=== PATIENT | female | born 1995 | race Caucasian/White ===

== ENCOUNTER 2020-12-27 08:23 | Emergency (ER) | payer BC, OTHER, SELFPAY ==
--- NOTE | ~2020-12-27 | XR_ITS ---
EXAMINATION: XR foot RT min 3V DATE: 12/27/2020 09:34 INDICATION: Right foot pain TECHNIQUE: Dorsoplantar, lateral, and 2 oblique views of the right foot were obtained. COMPARISON: None. FINDINGS: There is no fracture, dislocation, or subluxation. The bones, soft tissues, and joint space s are normal. IMPRESSION: 1. No acute osseous abnormality. Reviewed, dictated and finalized at location A.
[2020-12-27 09:00] VITALS: BP 118/88; PULSE 73; RESP 16; TEMP 36.5; O2SAT 98
--- NOTE | 2020-12-27 09:21 | ED.LOWEXIN ---
HPI - Extremity Injury (Lower) General Chief Complaint: Extremity Injury, Lower Stated Complaint: Foot injury Source: patient and RN notes reviewed Mode of arrival: wheelchair Limitations: no limitations History of Present Illness HPI Narrative: patient was kicked in the right lateral foot yesterday while playing soccer. complaint: foot injury Onset (ago): day(s) (1) Injury: Right: foot Type of Injury: blunt Place: street/outdoors Severity scale (1-10): 8 Relieving factors: rest Exacerbating factors: weight bearing, movement and palpation Context: direct blow Associated symptoms: able to partially bear weight Other symptoms: none Review of Systems Review of Systems: All systems reviewed & are unremarkable except as noted in HPI and below PMFSH Past Medical History Medical History (Updated 12/27/20 @ 09:44 by Giuseppe Nevarez MD) No active medical problems Surgical History Surgical History (Updated 12/27/20 @ 09:23 by Giuseppe Nevarez MD) No pertinent past surgical history Social History Social History (Updated 12/27/20 @ 09:29 by Giuseppe Nevarez MD) Smoking status: Never smoker Alcohol intake: current Alcohol use details: Occasional Substance use: current Substance use type: marijuana Exam Const: General: healthy appearing and no acute distress Nutritional Appearance: well nourished Orientation/consciousness: patient oriented x3 Other: female nurse in room during examination. HENMT: Head: normal to inspection Ears: external ears normal Eyes: Conjunctivae: conjunctivae normal Pupils: Equal, round and reactive pupils present EOM: EOMs intact bilaterally Neck: Neck: normal visual inspection Resp: Effort & Inspection: normal respiratory effort Auscultation: clear to auscultation bilaterally Cardio: Rate: regular rate Rhythm: regular rhythm GI: GI Palp: Yes Soft to palpation and No Tenderness to palpation present (GI) Auscultation: normal bowel sounds Back/Spine/Pelvis: Back: no CVA tenderness Skin: General skin exam: normal color Neuro: General: patient oriented x3, moves all extremities and no focal motor deficits Speech: normal speech Gait exam (Neuro): Normal gait present Extrem: General: normal to inspection and no clubbing, cyanosis or edema Right lower extremity: foot Details: tenderness Location: of the dorsal foot Location: distally, proximally and laterally ( Over 5th metatarsal) and ecchymosis lateral mid Psych: Appearance: grossly normal and well kempt Mental Status: mental status grossly normal Affect: normal affect Attitude: cooperative Thought content: Yes Normal thought content present Discharge Plan Discharge Clinical Impression: Contusion of right foot Qualifiers: Encounter type: initial encounter Qualified Code(s): S90.31XA - Contusion of right foot, initial encounter Patient Disposition: Home, Self-Care Condition: Stable Instructions: Foot Contusion (ED) Additional Instructions: use Tylenol and or Motrin as needed for pain. Ice and elevate. Follow-up with your primary care any worsening symptoms. Follow-up/Referrals: UNKNOWN,DOCTOR [Primary Care Provider] - Stand Alone Forms: Work/School Release IP Time of Disposition: 09:44
== END 2020-12-27 09:51 | disposition home or self-care (01) ==
PROVIDERS: Emergency Provider Emergency Medicine
DX: S90.31XA Contusion of right foot, initial encounter (principal); W50.1XXA Accidental kick by another person, initial encounter
CPT/HCPCS: 73630; 99282; 99283

== ENCOUNTER 2021-05-23 17:53 | Emergency (ER) | payer BC, OTHER, SELFPAY ==
[2021-05-23 18:20] VITALS: BP 132/76; PULSE 86; RESP 16; TEMP 36.7; O2SAT 100
--- NOTE | 2021-05-23 18:50 | PC.NURSE ---
EAN PEREZASSEMBLY WORKER AT [facility] CONTACTED FOR POSSIBLE TRANSFER, DR. CLAUDY ESCAMILLA CONTACTED AND SPOKE WITH ERP
--- NOTE | 2021-05-23 18:51 | ED.PREGNANCY ---
HPI - General Chief complaint: OB/Uterine Contractions Stated complaint: vaginally bleeding Time Seen by Provider: 05/23/21 17:55 Source: patient, family and RN notes reviewed Mode of arrival: ambulatory Limitations: no limitations History of Present Illness HPI Narrative: Pt stated she was 9 weeks and she was bleeding from everywhere . Pt did say she was bleeding from the vagina when asked again. She has had an OB US and does not have an ectopic. Pt refused IV fluids and any lab work-up. She was not prakash in her uterus. Complaint: vaginal bleeding Onset (ago): hour(s) (8) Pain Consistency: other (pt denied acute abdominal pain or utrine contractions.) Location: other (no acute pain) Associated symptoms: denies other symptoms Patient : Yes Number of Weeks : 9 care: followed by OB and previous ultrasound confirms IUP Related Data Home Medications Medication Instructions Recorded Confirmed No Home Medications 05/23/21 05/23/21 Allergies Allergy/AdvReac Type Severity Reaction Status Date / Time No Known Allergies Allergy Verified 05/23/21 18:36 Review of Systems Review of Systems: All systems reviewed & are unremarkable except as noted in HPI and below PMFSH Past Medical History Medical History No active medical problems Surgical History Surgical History No pertinent past surgical history Social History Social History Smoking status: Never smoker Alcohol intake: current Alcohol use details: Occasional Substance use: current Substance use type: marijuana Exam Const: General: no acute distress and alert Nutritional Appearance: well nourished Orientation/consciousness: patient oriented x3 HENMT: Head: normal to inspection Ears: external ears normal and TM's normal bilaterally General nose exam: Normal external nose present and Normal nares present Face and sinus: normal facial exam Mouth: Yes lip normal and Yes moist mucous membranes Teeth and gingiva: dentition normal Eyes: Conjunctivae: conjunctivae normal Pupils: Equal, round and reactive pupils present EOM: EOMs intact bilaterally Neck: Neck: normal visual inspection and no lymphadenopathy Chest: Chest palpation & inspection: normal inspection of the chest Resp: Effort & Inspection: normal respiratory effort Auscultation: clear to auscultation bilaterally Cardio: Rate: regular rate Rhythm: regular rhythm GI: GI Palp: Yes Soft to palpation Auscultation: normal bowel sounds : General: Yes bladder normal to palpation and Yes no CVA tenderness Other: gravid uterus, no evident contractions. Back/Spine/Pelvis: Back: no CVA tenderness Skin: General skin exam: normal color Rashes: no rashes Neuro: General: patient oriented x3, moves all extremities, no meningeal signs, no focal motor deficits and CN's II-XI intact bilaterally Extrem: General: normal to inspection and no pedal edema Psych: Appearance: grossly normal Mental Status: mental status grossly normal Thought content: Yes Normal thought content present Course Course Emergency Course: Pt left the ED AMA---family was unhappy with the option of ED OB U/S at [facility]. Pt was d/w OB MD on-call who offered that option. Reevaluation(s) Reevaluation #1: pt was stable and pain-free in the ED Date: 05/23/21 Time: 18:55 Vital Signs Vital signs: Vital Signs Temperature 36.7 C 05/23/21 18:20 Pulse Rate 86 05/23/21 18:20 Respiratory Rate 16 05/23/21 18:20 Blood Pressure 132/76 05/23/21 18:20 Pulse Oximetry 100 05/23/21 18:20 Temperature 36.7 C 05/23/21 18:20 Pulse Rate 86 05/23/21 18:20 Respiratory Rate 16 05/23/21 18:56 Blood Pressure 132/76 05/23/21 18:20 Pulse Oximetry 100 05/23/21 18:20
--- NOTE | 2021-05-23 18:54 | PC.NURSE ---
PATIENT LEFT BUILDING AGAINST MEDICAL ADVICE. PT DID NOT GIVE RN THE OPPORTUNITY TO PRESENT AMA FORM OR PROVIDE EDUCATION. PT STATES IM LEAVING BECAUSE THE DOCTOR HAD TO ASK ME WHERE I WAS EVEN BLEEDING FROM
[2021-05-23 18:56] VITALS: RESP 16
== END 2021-05-23 18:57 | disposition left against medical advice (07) ==
LOC: CHSED 17:55
PROVIDERS: Emergency Provider Emergency Medicine
DX: O46.91 Antepartum hemorrhage, unspecified, first trimester (principal)
CPT/HCPCS: 99281; 99282

== ENCOUNTER 2021-12-05 08:19 | Inpatient (IN) | payer BC, OTHER, SELFPAY ==
[2021-12-05] VITALS (116 sets, daily range): BP systolic 102–152; BP diastolic 31–93; PULSE 61–145; RESP 16–22; TEMP 36.6–37.3; O2SAT 81–100; BMI 32.4
--- NOTE | 2021-12-05 09:38 | PM.IMHP ---
H&P: HPI History of Present Illness Date/Time: 12/05/21 09:38 Chief Complaint: Intrauterine at term labor Narrative: 26 yo G1 at 37w2d who presents in labor. Pt states she started having regular contractions since 0200. She endorses good movement. She denies any vaginal bleeding or LOF. Her has been uncomplicated thus far. Pt has not received her COVID vaccine. Review of Systems Cardiovascular: Cardiovascular: Denies chest pain, Denies leg edema, Denies palpitations, Denies dyspnea and Denies dyspnea on exertion Respiratory: Respiratory: Denies cough, Denies dyspnea and Denies dyspnea on exertion Gastrointestinal: Gastrointestinal: Denies abdominal pain, Denies constipation, Denies diarrhea, Denies nausea and Denies vomiting Genitourinary: Genitourinary: Denies hematuria, Denies urinary frequency, Denies dysuria, Denies pelvic pain, Denies urinary incontinence and Denies vaginal discharge Neurologic: Reports system reviewed and no additional complaints, except as documented Psychiatric: Psychiatric: Reports no additional psychiatric complaints Endocrine: Endocrine: Denies palpitations PMFSH Past Medical History Medical History No active medical problems Surgical History Surgical History No pertinent past surgical history Family History Family History (Updated 11/25/21 @ 13:39 by Luis Felipe Dietz RN) Other No pertinent family history Social History Social History Smoking status: Never smoker Alcohol intake: current Alcohol use details: Occasional Substance use: never Substance use type: marijuana Spiritual care concerns: No Meds Home Medications and Allergies Home Medications Medication Instructions Recorded Confirmed Type PNV cmb#95-ferrous fumarate-FA 1 tablet PO DAILY 11/25/21 11/25/21 History [] Allergies Allergy/AdvReac Type Severity Reaction Status Date / Time nickel Allergy Rash Verified 11/25/21 14:02 peanut Allergy Rash Verified 11/25/21 14:02 Vital Signs Vital Signs - 24 hr 12/05/21 08:53 12/05/21 09:00 12/05/21 09:15 Pulse Rate 62 67 66 Blood Pressure 129/85 132/82 133/83 12/05/21 09:30 Pulse Rate 83 Blood Pressure 122/70 Exam Const: General: no acute distress Eyes: EOM: EOMs intact bilaterally Neck: Neck: supple Thyroid: thyroid normal Chest: Breast/axilla inspection: normal inspection of the breasts Breast/axilla palpation: normal palpation of the breasts, normal palpation of the axillae and no axillary lymphadenopathy Resp: Effort & Inspection: normal respiratory effort Auscultation: clear to auscultation bilaterally Cardio: Rate: regular rate Rhythm: regular rhythm GI: Inspection: non-distended and other (Gravid) GI Palp: Yes Soft to palpation, No Tenderness to palpation present (GI) and No Guarding due to palpation present (GI) Auscultation: normal bowel sounds : Speculum Exam - Vagina: No vaginal bleeding OB/external & speculum: external exam normal; No vaginal bleeding Skin: General skin exam: normal color and no rashes or lesions noted Neuro: Cognition (Neuro): normal cognition Speech: normal speech Extrem: General: normal to inspection Psych: Mental Status: mental status grossly normal Affect: normal affect Assessment and Plan Assessment and plan (1) Supervision of high risk , unspecified, third trimester: Code(s): O09.93 - Supervision of high risk , unspecified, third trimester Status: Acute Assessment and Plan: 26 yo G1 at 37w2d who presents in labor admit to L&D routine admission orders Rh+ GBS neg FHT cat 1 cvx 5cm AROM for clear fluid continuous EFM may have epidural continue expectant management (2) COVID-19 vaccine series declined: Code(s): Z28.
[2021-12-05] MEDS: fentaNYL CITRATE INJ (*CRX) 100 MCG/2 ML VIAL IV PUSH (09:42)
[2021-12-05] MEDS: LACTATED RINGERS 1,000 ML 125 ML IV CONT (09:43)
[2021-12-05 09:47] LABS: Basophils Absolute Auto 0.1 K/mm3 (0.0-0.1); Basophils Percent Auto 0.4 % (0.2-1.2); Eosinophils Percent Auto 0.2 % (0-4.4); Hematocrit 35.2 % (37.0-47.0); Hemoglobin 11.7 g/dL (12.0-15.0); Immature Granulocyte Absolute 0.04 K/mm3 (0.00-0.031); Immature Granulocyte Percent A 0.3 % (0-0.5); Immature Platelet Fraction Pct 15.1 % (0.9-11.2); Lymphocytes Absolute Auto 1.06 K/mm3 (0.9-3.2); Lymphocytes Percent Auto 8.1 % (18.3-44.2); Mean Corpuscular HGB Conc 33.2 g/dl (32-36); Mean Corpuscular Hemoglobin 28.9 pg (26-34); Mean Corpuscular Volume 86.9 fl (80-100); Mean Platelet Volume 13.2 fl (7.4-10.4); Monocytes Absolute Auto 0.5 K/mm3 (0.1-0.6); Monocytes Percent Auto 3.7 % (2.6-8.5); Neutrophils Absolute Auto 11.4 K/mm3 (1.3-6.7); Neutrophils Percent Auto 87.3 % (45.5-73.1); Platelet Count Result 231 k/mm3 (150-375); Red Blood Count 4.05 M/mm3 (4.2-5.4); Red Cell Distribution Width 12.1 % (11.5-14.5); White Blood Count 13.1 K/mm3 (4.5-10.0)
--- NOTE | 2021-12-05 09:58 | P.PNAN_ITS ---
Anes - Eval Pre Procedure Procedure: labor pain management Date/Time: 12/05/21 09:58 Surgeon: Ariel Preop Diagnosis: pain during labor Pre Op Diagnosis: Labor Patient Data Age: 26 Gender: F Height: Weight: Last Vital Signs Pulse 70 12/05/21 09:46 BP 102/77 12/05/21 09:46 Allergies Allergy/AdvReac Type Severity Reaction Status Date / Time nickel Allergy Rash Verified 11/25/21 14:02 peanut Allergy Rash Verified 11/25/21 14:02 Home Medications Medication Instructions Recorded Confirmed Type PNV cmb#95-ferrous fumarate-FA 1 tablet PO DAILY 11/25/21 11/25/21 History [] Laboratory Tests 12/05/21 12/05/21 09:38 09:38 WBC 13.1 K/mm3 H K/mm3 (4.5-10.0) RBC 4.05 M/mm3 L M/mm3 (4.2-5.4) Hgb 11.7 g/dL L g/dL (12.0-15.0) Hct 35.2 % L % (37.0-47.0) MCV 86.9 fl fl (80-100) MCH 28.9 pg pg (26-34) MCHC 33.2 g/dl g/dl (32-36) RDW 12.1 % % (11.5-14.5) Plt Count 231 k/mm3 k/mm3 (150-375) MPV 13.2 fl H fl (7.4-10.4) Immature Gran % (Auto) 0.3 % % (0-0.5) Neut % (Auto) 87.3 % H % (45.5-73.1) Lymph % (Auto) 8.1 % L % (18.3-44.2) [place] % (Auto) 3.7 % % (2.6-8.5) Eos % (Auto) 0.2 % % (0-4.4) Baso % (Auto) 0.4 % % (0.2-1.2) Lymph # (Auto) 1.06 K/mm3 K/mm3 (0.9-3.2) [place] # (Auto) 0.5 K/mm3 K/mm3 (0.1-0.6) Eos # (Auto) 0.0 K/mm3 K/mm3 (0-0.3) Baso # (Auto) 0.1 K/mm3 K/mm3 (0.0-0.1) Abs Immat Gran (auto) 0.04 K/mm3 H K/mm3 (0.00-0.031) Absolute Neuts (auto) 11.4 K/mm3 H K/mm3 (1.3-6.7) Absolute Nucleated RBC 0.0 K/mm3 K/mm3 (0.0-0.012) Nucleated RBC % 0.0 % % (0.0-0.2) % Immature Plt Fraction 15.1 % H % (0.9-11.2) RPR Pending : gestational age (edc 12/24/21) Patient hx anesthesia problems: none Family hx anesthesia problems: none Results Review: All pre-operative results and documents have been reviewed as part of the pre-operative evaluation. [facility], [facility] Past Medical History Medical History (Updated 12/05/21 @ 10:00 by Dary Han CRNA) No active medical problems Substance abuse marijuana Surgical History Surgical History No pertinent past surgical history Family History Family History (Updated 11/25/21 @ 13:39 by Luis Felipe Dietz RN) Other No pertinent family history Social History Social History Smoking status: Never smoker Alcohol intake: current Alcohol use details: Occasional Substance use: never Substance use type: marijuana Spiritual care concerns: No Exam Day of Procedure 12/05/21 09:58
--- NOTE | 2021-12-05 10:35 | LDADM ---
This patient, Krista Fu, was admitted to Labor/Delivery/Recovery 105 on 12/05/21 at 08:19. Plans for labor, pain management and were discussed with patient. Patient/family oriented to hospital policies and general routines including ID bracelet, bed and alarms, visiting hours, pain management, procedures, bathroom and other care routines, personal items, smoking policy, room service/diet and guest tray routines, infant security routines, and visiting hours. Patient/Family are encouraged to report perceived risks to care and to ask questions if they do not understand what they are told or what they should do. See OBIX for further documentation.
--- NOTE | 2021-12-05 13:45 | PC.NURSE ---
Addendum entered by Juliann Red RN 12/05/21 15:06: WRONG PT. Original Note: This patient, Krista Fu, was received from PACU on 12/05/21 at 1345. Patient/family oriented to unit policies and routines
[2021-12-05] MEDS: OXYTOCIN 30 UNITS/NS 500 ML 30 UNITS/500 ML BAG 125 UNITS IV CONT ×2 (14:59→15:35)
[2021-12-05] MEDS: LIDOCAINE HCL 1% LOCAL INJ 10 ML VIAL (15:03)
--- NOTE | 2021-12-05 15:17 | PM.OBPRVD ---
OB - Delivery Note Procedure Procedure: Patient pushed for a spontaneous vaginal delivery. There was noted to be a body cord x1 that was delivered through. The fetus was delivered atraumatically and placed on the maternal abdomen. The cord was clamped and cut after 1 minute of life. The cord was double clamped and cut and a segment of cord was collected for cord gases. Cord blood was collected for blood type and Coomb's testing. The placenta delivered spontaneously and was noted to be intact. The perineum was inspected and there was a 1st degree perineal laceration and a left vaginal laceration extending to the labia. The lacerations were repaired with 3-0 vicryl in the usual fashion. The uterus was firm and good hemostasis was noted. The patient and fetus were stable in the delivery room. Induction method: None Delivery augmentation: Rupture of Membranes Delivery monitor: External FHT Route of delivery: Episiotomy description: None Laceration Description: Perineal - 1st Degree and Vaginal (left) Delivery repair: vicryl Specimen: No Quantitative Blood Loss (ml): 200 Anesthesia type: Epidural Disposition: Floor () Complications: No immediate complications Baby Date of : 12/05/21 Time of : 14:56 Weeks of gestation at delivery: 37 Infant gender: Female Weight (pounds): 6 Weight (ounces): 0 presentation: vertex position: Left Occiput Anterior Placenta delivery description: Spontaneous Cord Vessel Description: 3 Vessels and Around Body score one minute: 8 score five minutes: 9
[2021-12-05] MEDS: WITCH HAZEL 40 PADS 1 PAD TOPICAL (16:21)
[2021-12-05] MEDS: BENZOCAINE 20% AER SPR (*SP) 56 GM CAN 1 SPRAY TOPICAL (16:21)
[2021-12-05] MEDS: IBUPROFEN 600 MG TABLET PO (17:53)
--- NOTE | 2021-12-05 18:10 | PC.NURSE ---
Patient transferred to post room #292 via w/c. Support person, Jose, present. Oriented to unit, room, information board, rooming in, admission packet and security measures. Patient verbalizes understanding.
[2021-12-06] MEDS: IBUPROFEN 600 MG TABLET PO ×2 (03:16→19:46)
[2021-12-06 03:30] VITALS: BP 105/64; PULSE 70; RESP 16; TEMP 36.7; O2SAT 100
[2021-12-06 06:03] LABS: Hematocrit 33.1 % (37.0-47.0); Hemoglobin 10.8 g/dL (12.0-15.0)
[2021-12-06 06:54] LABS: Rapid Plasma Reagin Non-Reactive (NonReactive)
[2021-12-06 07:30] VITALS: BP 115/71; PULSE 71; RESP 16; TEMP 36.3; O2SAT 99
--- NOTE | 2021-12-06 07:37 | PM.OBDSVD ---
DS: Admitting Diagnosis Discharge Date 12/06/21 Admitting Diagnosis intrauterine at term OB - DS: Summary OB Procedures : None OB Procedures Intrapartum: Spontaneous Vag Delivery OB Procedures: : None Status at Discharge Functional status at discharge: independent ambulation Overall status at discharge: patient is back to baseline Time Spent with Patient Time attestation: Total time spent providing and/or coordinating discharge services: Time spent: Less than 30 minutes Exam Const: General: comfortable and no acute distress Resp: Effort & Inspection: normal respiratory effort Auscultation: clear to auscultation bilaterally Cardio: Rate: regular rate GI: GI Palp: Yes Soft to palpation Auscultation: normal bowel sounds Other: Fundus firm below umbilicus Psych: Appearance: grossly normal Mental Status: mental status grossly normal Affect: normal affect DS: Data Data Completed and Pending Labs on day of discharge: Labs from last 24 hours 12/06/21 12/05/21 12/05/21 03:26 09:38 09:38 WBC RBC Hgb 10.8 L Hct 33.1 L MCV MCH MCHC RDW Plt Count MPV Immature Gran % (Auto) Neut % (Auto) Lymph % (Auto) [place] % (Auto) Eos % (Auto) Baso % (Auto) Lymph # (Auto) [place] # (Auto) Eos # (Auto) Baso # (Auto) Abs Immat Gran (auto) Absolute Neuts (auto) Absolute Nucleated RBC Nucleated RBC % % Immature Plt Fraction RPR Non-reactive Blood Type A Positive Antibody Screen Negative 12/05/21 09:38 WBC 13.1 H RBC 4.05 L Hgb 11.7 L Hct 35.2 L MCV 86.9 MCH 28.9 MCHC 33.2 RDW 12.1 Plt Count 231 MPV 13.2 H Immature Gran % (Auto) 0.3 Neut % (Auto) 87.3 H Lymph % (Auto) 8.1 L [place] % (Auto) 3.7 Eos % (Auto) 0.2 Baso % (Auto) 0.4 Lymph # (Auto) 1.06 [place] # (Auto) 0.5 Eos # (Auto) 0.0 Baso # (Auto) 0.1 Abs Immat Gran (auto) 0.04 H Absolute Neuts (auto) 11.4 H Absolute Nucleated RBC 0.0 Nucleated RBC % 0.0 % Immature Plt Fraction 15.1 H RPR Blood Type Antibody Screen Discharge Plan Discharge Discharging Clinician: Andres George Patient Disposition: Home, Self-Care Activity: as tolerated and pelvic rest Diet: regular Patient Instructions: Antibiotic Form, Vaginal Delivery (DC) Stand Alone Forms: General Discharge Information Follow-up/Referrals: Andres George MD [Physician] - Discharge Medications: New acetaminophen [Mapap (acetaminophen)] 325 mg Tablet 650 mg PO Q6H PRN (Reason: Mild Pain (1-3) Or Headache) Qty: 30 RF: 0 ibuprofen 600 mg Tablet 600 mg PO Q6H PRN (Reason: Cramping) Qty: 30 RF: 0 Continued PNV cmb#95-ferrous fumarate-FA [] 28 mg iron- 800 mcg Tablet 1 tablet PO DAILY RF: 0 Date of admission: 12/05/21 08:19 Primary Care Provider: PHYSICIAN,ELECTRIC SYSTEM OPERATOR Admitting Provider: Andres George Attending physician on admission: Andres George Condition: Stable
[2021-12-06] MEDS: DOCUSATE SODIUM 100 MG CAPSULE PO (07:42)
--- NOTE | 2021-12-06 10:18 | WPDANLDPN2 ---
Anes-Prog Note L&D Date/Time: 12/06/21 10:18 Comfortable throughout: labor and delivery Neuraxial method: epidural Epidural/Spinal procedure site: clean & non-tender Neuro status: Neuro function grossly intact. Cardiovascular status: normal Respiratory status: normal Airway patency: baseline Mental status: baseline Post-Op hydration status: normal Vital Signs: Last Vital Signs Temp 36.3 C L 12/06/21 07:30 Pulse 71 12/06/21 07:30 Resp 16 12/06/21 07:30 BP 115/71 12/06/21 07:30 Pulse Ox 99 12/06/21 07:30 Pain score (VAS): 2 I/O: Intake & Output 12/05/21 12/06/21 12/06/21 23:59 07:59 15:59 Intake Total 500 Output Total 125 Balance 375 Post-procedural complaints: none Patient feedback: Patient satisfied with anesthetic care.
[2021-12-06 12:13] VITALS: BP 117/67; PULSE 77; RESP 16; TEMP 36.6; O2SAT 98
[2021-12-06 20:25] VITALS: BP 106/67; PULSE 71; RESP 16; TEMP 37; O2SAT 99
[2021-12-07] MEDS: IBUPROFEN 600 MG TABLET PO (08:25)
[2021-12-07 08:40] VITALS: BP 118/64; PULSE 76; RESP 18; TEMP 36.7; O2SAT 99
--- NOTE | 2021-12-07 12:25 | PM.OBPNVD ---
OB - PN: Subj Subjective Date/time seen: 12/07/21 12:25 Narrative: Pain OK. Would like to go home. OB - PN: Obj Data Labs CBC & Chem 7: 12/06/21 03:26 OB - PN A/P Plan Comments: A: PPD#2, doing well. P: Home to f/u 6 weeks. Exam Psych: Other: AVSS ABD soft, nontender, fundus firm EXT nontender
--- NOTE | 2021-12-07 18:43 | PC.NURSE ---
1000 Patient viewed the discharge video Mother & Baby Care, The First Two Weeks . Patient was given the opportunity and encouraged to ask questions. Patient verbalized understanding of information shared and has been given the mother/baby guide for home reference.
[2021-12-08 09:26] VITALS: BP 127/74; PULSE 96; RESP 18; TEMP 37.1; O2SAT 37
== END 2021-12-07 16:35 | disposition home or self-care (01) | DRG 807 ==
LOC: ANHLDR 12:01 → ANHOB2 18:13
PROVIDERS: Admitting Provider Student in an Organized Health Care Education/Training Program; Visit Provider Student in an Organized Health Care Education/Training Program
DX: O69.82X0 Labor and delivery complicated by other cord entanglement, without compression, not applicable or unspecified (principal); Z37.0 Single live birth; Z3A.37 37 weeks gestation of pregnancy; O36.8330 Maternal care for abnormalities of the fetal heart rate or rhythm, third trimester, not applicable or unspecified; O70.0 First degree perineal laceration during delivery; Z28.21 Immunization not carried out because of patient refusal; Z28.310 Unvaccinated for COVID-19
CPT/HCPCS: 36415; 85014; 85018; 85025; 85055; 86592; 86850; 86900; 86901; A9270; J2590; J2795; J3010; J7120

== ENCOUNTER 2024-09-25 08:32 | Emergency (ER) | payer OTHER, SELFPAY ==
[2024-09-25 08:40] VITALS: BP 114/63; PULSE 78; RESP 20; TEMP 37; O2SAT 100
--- NOTE | 2024-09-25 08:47 | ED_ITS ---
HPI - URI/Sore Throat General Chief Complaint: Upper Respiratory Infection Stated Complaint: flu symptoms Source: patient and RN notes reviewed Mode of arrival: ambulatory Limitations: no limitations History of Present Illness HPI Narrative: 29-year-old female presented for complaint of headache, body aches, sinus pressure/congestion, cough, fever/chills. onset yesterday. Reports exposure to flu at work. Took Tylenol this morning. Denies sob, wheezing, n/v/d. MD elicited complaint: cough Related Data Home Medications ?Medication ?Instructions ?Recorded ?Confirmed ?Last Taken ?Type No Home Medications 09/25/24 09/25/24 Unknown History Allergies Allergy/AdvReac Type Severity Reaction Status Date / Time nickel Allergy Rash Verified 09/25/24 08:54 peanut Allergy Rash Verified 09/25/24 08:54 Review of Systems Review of Systems: CONSTITUTIONAL: Endorses malaise, chills, sweats, fever EYES: Denies visual changes, redness, or discharge ENT: Reports rhinorrhea, congestion, sinus pain, otalgia, sore throat CARDIOVASCULAR: Denies chest pain, palpitations, edema RESPIRATORY: Reports cough, post nasal drainage. Denies dyspnea GASTROINTESTINAL: Denies abdominal pain, nausea, vomiting, diarrhea SKIN: Denies rash MUSCULOSKELETAL: Endorses myalgia PMFSH Past Medical History Medical History Substance abuse marijuana No active medical problems Surgical History Surgical History No pertinent past surgical history Family History Family History Other No pertinent family history Social History Social History Smoking status: Never smoker Alcohol intake: current Alcohol use details: Occasional Substance use: never Substance use type: marijuana Spiritual care concerns: No Exam Narrative: GENERAL:mildly Ill-appearing, nontoxic EYES: PERRLA, conjunctivae clear ENT: Mucous membranes moist. TM pearly robles with dull light reflex bilaterally; no tragal tenderness. Oropharynx erythematous without lesions or exudate, no drooling, no hoarseness, no trismus, uvula midline. No tripod positioning, muffled voice, soft palate or pharyngeal wall bulging NECK: Supple. No lymphadenopathy CHEST: Clear to auscultation, breath sounds equal. No wheezing, rhonchi, rales, or stridor. No respiratory distress, speaks in full sentences. HEART: Regular rate and rhythm. No murmur heard. SKIN: Warm, dry, no rash. NEURO: Alert and oriented x3. PSYCH: Normal mood and affect Course Course Emergency Course: Patient is aware of diagnosis, understands and agrees to treatment plan. Anticipatory guidance given. Patient agrees to follow-up as directed and is aware of reasons to seek care at the emergency department. Portions of this record may have been created with voice recognition software Level of Care: Express Care Visit Vital Signs Vital signs: Vital Signs Temperature 98.6 F 09/25/24 08:40 Pulse Rate 78 09/25/24 08:40 Respiratory Rate 20 09/25/24 08:40 Blood Pressure 114/63 09/25/24 08:40 Pulse Oximetry 100 09/25/24 08:40 Oxygen Delivery Room Air 09/25/24 08:40 Temperature 98.6 F 09/25/24 08:40 Pulse Rate 78 09/25/24 08:40 Respiratory Rate 20 09/25/24 08:40 Blood Pressure 114/63 09/25/24 08:40 Pulse Oximetry 100 09/25/24 08:40 Oxygen Delivery Room Air 09/25/24 08:40 reviewed MDM - URI/Sore Throat MDM Narrative Medical decision making narrative: Discussed physical exam findings, neg flu and covid. declined strep testing. Advised supportive measures and signs/symptoms to go to the ER. Pt is appropriate for outpt treatment and f/u. Differential Diagnosis Differential diagnosis: Likely upper respiratory infection, sinusitis, viral infection, bronchitis, influenza and pharyngitis Discharge Plan Discharge Clinical Impression: Viral infection Patient Disposition: Home, Self-Care Condition: Stable Instructions: Antibiotic Form, Influenza (ED) Additional Instructions: Your rapid covid And influenza tests were negative today. It may be too early to detect the virus, therefore we recommend retesting at home in 1-2 days Continue to follow general precautions: frequent handwashing, wear a mask, isolate/social distance, and avoid crowds if you have a fever. You must be fever free for 24 hours without the use of fever reducing medication (Tylenol/ibuprofen) before returning to work/school/crowds. Recommendations: Flonase spray and Zyrtec (or Claritin/Rosalind) over the counter Cough syrup may cause drowsiness; avoid driving or take it at night time. Tylenol 1000mg every 8 hours as needed for pain Symptomatic treatment includes: rest, fluids, and increase humidity of the air at home. Follow up with your primary care provider Go to the ER for worsening symptoms or concerns. Patient Language: Kyrgyz Prescriptions: No Action No Home Medications Follow-up/Referrals: PHYSICIAN,REED OR [facility] [Primary Care Provider] - Time of Disposition: 09:04
[2024-09-25 09:06] LABS: EDCOVIDSCREEN Negative (Negative); EDINFLUASCREEN Negative (Negative); EDINFLUBSCREEN Negative (Negative)
== END 2024-09-25 09:05 | disposition home or self-care (01) ==
PROVIDERS: Emergency Provider Nurse Practitioner Family
DX: B34.9 Viral infection, unspecified (principal); Z20.822 Contact with and (suspected) exposure to COVID-19
CPT/HCPCS: 87426; 87804; 99212; G0463